=== PATIENT | male | born 1940 | race Caucasian/White ===

== ENCOUNTER 2019-11-04 17:33 | Emergency (ER) | payer OTHER ==
[~2019-11-04] VITALS: Ht 167.6 cm; Wt 83.9 kg
[2019-11-04] MEDS ORDERED: TAMS0.4C (17:42)
[2019-11-04] MEDS ORDERED: ECOTRIN81 MG (17:42)
[2019-11-04] MEDS ORDERED: PROTONIX40 M1 (17:42)
[2019-11-04] MEDS ORDERED: LIPITOR20 MG (17:42)
[2019-11-04] MEDS ORDERED: NORVASC2.5 MG (17:43)
[2019-11-05] MEDS ORDERED: COLACE100 MG PO (13:14)
== END 2019-11-05 13:31 | disposition home or self-care (01) ==
LOC: ER 17:33 → SEC-K 19:12 → SURG-SUITE 19:12 → SEC-K 23:05 → SURG-SUITE 23:05 → SEC-K 23:05 → MEDI 11-05 11:15 → SEC-K 11-05 11:15 → ER 11-05 13:31 → MEDI 11-05 13:33
DX: K59.09 Other constipation (principal); N13.8 Other obstructive and reflux uropathy; R14.0 Abdominal distension (gaseous)

== ENCOUNTER 2019-11-16 08:32 | Outpatient (CLI) | payer OTHER ==
[~2019-11-16 08:32] MED LIST: COLACE100 MG PO; ECOTRIN81 MG; LIPITOR20 MG; NORVASC2.5 MG; PROTONIX40 M1; TAMS0.4C
== END 2019-11-16 14:19 | disposition home or self-care (01) ==
LOC: MRI 08:32
PROVIDERS: ATTEND Internal Medicine
DX: M25.552 Pain in left hip (principal)
CPT/HCPCS: 73721

== ENCOUNTER 2021-03-04 14:49 | Emergency (ER) | payer OTHER ==
[~2021-03-04] VITALS: Ht 167.6 cm; Wt 85.7 kg
== END 2021-03-04 23:21 | disposition home or self-care (01) ==
LOC: ER 14:49
DX: S01.02XA Laceration with foreign body of scalp, initial encounter (principal); R53.1 Weakness; W18.09XA Striking against other object with subsequent fall, initial encounter; Y93.89 Activity, other specified; Y92.89 Other specified places as the place of occurrence of the external cause; Y99.8 Other external cause status; Z11.52 Encounter for screening for COVID-19

== ENCOUNTER 2021-03-07 13:21 | Outpatient (CLI) | payer OTHER | END 2021-03-07 13:36 | disposition home or self-care (01) | LOC: TOM 13:21 | PROVIDERS: ATTEND Internal Medicine | DX: S06.339A Contusion and laceration of cerebrum, unspecified, with loss of consciousness of unspecified duration, initial encounter (principal) ==

== ENCOUNTER 2021-03-21 09:57 | Outpatient (CLI) | payer OTHER | END 2021-03-21 09:58 | disposition home or self-care (01) | LOC: NUCLEAR 09:57 | PROVIDERS: ATTEND Internal Medicine | DX: R55 Syncope and collapse (principal) ==

== ENCOUNTER 2021-05-25 15:04 | Outpatient (CLI) | payer OTHER | END 2021-05-25 15:07 | disposition home or self-care (01) | LOC: MRI 15:04 | PROVIDERS: ATTEND Psychiatry & Neurology Clinical Neurophysiology | DX: I61.1 Nontraumatic intracerebral hemorrhage in hemisphere, cortical (principal) | CPT/HCPCS: 70551 ==

== ENCOUNTER → 2023-02-22 | Emergency (ER) | payer OTHER ==
[~2023-02-22] VITALS: Ht 167.6 cm; Wt 84.4 kg
[~2023-02-22] MED LIST changes: +BETHANECHOL CHL50 MG PO; +LIPITOR20 MG PO; +LOSARTAN POTASS50 MG PO; +NAMENDA10 MG PO; +RIVASTIGMINE1 EAC2 TD
[2023-02-22 17:52] LABS: HEMATOCRIT 44.4 % (39.0-48.0); MEAN CELL VOLUME 93.7 fL (80.0-100.00); MEAN CORPUSCULAR HEMOGLOBIN 31.7 pg (27.00-32.0); MEAN CORPUSCULAR HGB CONC 33.9 g/dl (32.0-36.0); PLATELET COUNT 144 K/uL (150-450); RED BLOOD COUNT 4.73 M/uL (4.00-6.00); RED CELL DISTRIBUTION WIDTH 13.9 % (11.5-14.5)
[2023-02-22 18:17] LABS: BILIRUBIN TOTAL 1.3 mg/dL (0.3-1.2); CALCIUM 9.4 mg/dL (8.5-10.1); CREATININE SERUM 0.9 mg/dL (0.70-1.30); GFR 80.79; GLOBULINA 4.2 G/DL (2.4-3.5); POTASSIUM 3.7 mEq/L (3.5-5.1); TOTAL PROTEIN 8.2 gm/dL (6.4-8.2)
== END | disposition home or self-care (01) ==
LOC: ER 16:06
PROVIDERS: General Practice
DX: I61.9 Nontraumatic intracerebral hemorrhage, unspecified (principal); I10 Essential (primary) hypertension; Z20.822 Contact with and (suspected) exposure to COVID-19
CPT/HCPCS: 36415; 70450; 71046; 93005; 96365; 99284; J3490

== ENCOUNTER 2023-04-22 10:16 | Outpatient (CLI) | payer OTHER | END 2023-04-22 10:22 | disposition home or self-care (01) | LOC: MRI 10:16 | PROVIDERS: ATTEND Internal Medicine | DX: S06.310A Contusion and laceration of right cerebrum without loss of consciousness, initial encounter (principal) | CPT/HCPCS: 70551 ==